=== PATIENT | female | born 1970 | race Caucasian/White ===

== ENCOUNTER 2019-07-18 08:00 | Inpatient (IN) | payer OTHER ==
[~2019-07-18] VITALS: Ht 157.5 cm; Wt 77.1 kg
[2019-07-26] MEDS ORDERED: IBUPROFEN800 MG PO (07:14)
[2019-07-26] MEDS ORDERED: NEURONTIN600 MG PO (07:14)
== END 2019-07-26 08:35 | disposition home or self-care (01) | DRG 743 ==
LOC: O/R 07-24 06:00 → OB/GYN 07-24 06:00 → SURH 07-24 08:00 → O/R 07-24 08:00 → SURH 07-24 08:30 → OB/GYN 07-24 11:38
PROVIDERS: ADMIT Obstetrics & Gynecology
PROC: 0UB70ZZ Excision of Bilateral Fallopian Tubes, Open Approach (ICD-10-PCS; 2019-07-24)
PROC: 0UT90ZZ Resection of Uterus, Open Approach (ICD-10-PCS; principal; 2019-07-24 08:30)
DX: N80.0 Endometriosis of uterus (principal); D25.1 Intramural leiomyoma of uterus; D25.0 Submucous leiomyoma of uterus; D25.2 Subserosal leiomyoma of uterus

== ENCOUNTER 2019-08-10 14:35 | Inpatient (IN) | payer OTHER ==
[~2019-08-10] VITALS: Ht 157.5 cm; Wt 74.4 kg
[~2019-08-10 14:35] MED LIST: IBUPROFEN800 MG PO; NEURONTIN600 MG PO
== END 2019-08-18 17:21 | disposition home or self-care (01) | DRG 920 ==
LOC: OB/GYN 14:35
PROVIDERS: ADMIT Obstetrics & Gynecology
PROC: 30233N1 Transfusion of Nonautologous Red Blood Cells into Peripheral Vein, Percutaneous Approach (ICD-10-PCS; principal; 2019-08-10)
PROC: BW21Y0Z Computerized Tomography (CT Scan) of Abdomen and Pelvis using Other Contrast, Unenhanced and Enhanced (ICD-10-PCS; 2019-08-10)
PROC: BU4CZZZ Ultrasonography of Uterus and Ovaries (ICD-10-PCS; 2019-08-10)
PROC: 0W9F30Z Drainage of Abdominal Wall with Drainage Device, Percutaneous Approach (ICD-10-PCS; 2019-08-15)
DX: N99.841 Postprocedural hematoma of a genitourinary system organ or structure following other procedure (principal); K68.11 Postprocedural retroperitoneal abscess; D62 Acute posthemorrhagic anemia; B95.7 Other staphylococcus as the cause of diseases classified elsewhere; B95.1 Streptococcus, group B, as the cause of diseases classified elsewhere

== ENCOUNTER → 2021-05-01 09:19 | Outpatient (CLI) | payer OTHER | END | disposition home or self-care (01) | LOC: NUCLEAR 09:00 | PROVIDERS: ATTEND Obstetrics & Gynecology | DX: I73.9 Peripheral vascular disease, unspecified (principal) ==

== ENCOUNTER 2021-05-06 09:47 | Outpatient (CLI) | payer OTHER | END 2021-05-06 09:53 | disposition home or self-care (01) | LOC: NUCLEAR 09:47 | PROVIDERS: ATTEND Obstetrics & Gynecology | DX: I87.2 Venous insufficiency (chronic) (peripheral) (principal); I73.9 Peripheral vascular disease, unspecified; I83.93 Asymptomatic varicose veins of bilateral lower extremities ==

== ENCOUNTER 2021-09-26 07:28 | Outpatient (CLI) | payer OTHER | END 2021-09-26 07:36 | disposition home or self-care (01) | LOC: NUCLEAR 07:28 | PROVIDERS: ATTEND Internal Medicine Cardiovascular Disease | DX: I10 Essential (primary) hypertension (principal) ==

== ENCOUNTER 2022-02-11 10:05 | Outpatient (CLI) | payer OTHER | END 2022-02-11 10:11 | disposition home or self-care (01) | LOC: SONOGRAMA 10:05 | PROVIDERS: ATTEND Obstetrics & Gynecology | DX: R10.2 Pelvic and perineal pain (principal) ==

== ENCOUNTER → 2022-02-13 08:54 | Outpatient (CLI) | payer OTHER | END | disposition home or self-care (01) | LOC: LAB 08:54 | PROVIDERS: ATTEND Obstetrics & Gynecology | DX: E03.9 Hypothyroidism, unspecified (principal); I10 Essential (primary) hypertension; Z00.00 Encounter for general adult medical examination without abnormal findings; E78.9 Disorder of lipoprotein metabolism, unspecified; N39.0 Urinary tract infection, site not specified; Z11.4 Encounter for screening for human immunodeficiency virus [HIV]; Z12.11 Encounter for screening for malignant neoplasm of colon; E55.9 Vitamin D deficiency, unspecified; Z21 Asymptomatic human immunodeficiency virus [HIV] infection status; R79.9 Abnormal finding of blood chemistry, unspecified; R79.89 Other specified abnormal findings of blood chemistry ==

== ENCOUNTER 2022-02-19 08:52 | Outpatient (CLI) | payer OTHER | END 2022-02-19 08:57 | disposition home or self-care (01) | LOC: LAB 08:52 | PROVIDERS: ATTEND Obstetrics & Gynecology | DX: I10 Essential (primary) hypertension (principal); E03.9 Hypothyroidism, unspecified; E78.00 Pure hypercholesterolemia, unspecified; N39.0 Urinary tract infection, site not specified; E55.9 Vitamin D deficiency, unspecified; R79.9 Abnormal finding of blood chemistry, unspecified; R79.89 Other specified abnormal findings of blood chemistry; Z00.00 Encounter for general adult medical examination without abnormal findings; Z11.4 Encounter for screening for human immunodeficiency virus [HIV]; Z12.11 Encounter for screening for malignant neoplasm of colon ==

== ENCOUNTER 2022-03-11 09:36 | Outpatient (CLI) | payer OTHER | END 2022-03-11 09:38 | disposition home or self-care (01) | LOC: MAMO-SONO 09:36 | PROVIDERS: ATTEND Obstetrics & Gynecology | DX: N63 Unspecified lump in breast (principal); N64.59 Other signs and symptoms in breast; N64.9 Disorder of breast, unspecified ==

== ENCOUNTER 2022-11-07 03:49 | Emergency (ER) | payer OTHER ==
[~2022-11-07] VITALS: Ht 157.5 cm; Wt 79.4 kg
== END 2022-11-07 11:01 ==
LOC: ER 03:49
DX: R07.89 Other chest pain (principal); Z88.0 Allergy status to penicillin; Z91.013 Allergy to seafood

== ENCOUNTER 2022-11-16 09:22 | Outpatient (CLI) | payer OTHER | END 2022-11-16 09:25 | disposition home or self-care (01) | LOC: NUCLEAR 09:22 | PROVIDERS: ATTEND Internal Medicine Cardiovascular Disease | DX: R00.2 Palpitations (principal); E78.2 Mixed hyperlipidemia ==

== ENCOUNTER 2022-11-27 11:45 | Outpatient (CLI) | payer OTHER | END 2022-11-27 12:00 | disposition home or self-care (01) | LOC: MRI 11:45 | PROVIDERS: ATTEND Neuromusculoskeletal Medicine & OMM | DX: M50.20 Other cervical disc displacement, unspecified cervical region (principal); M50.30 Other cervical disc degeneration, unspecified cervical region | CPT/HCPCS: 72141; 72148 ==

== ENCOUNTER → 2023-02-12 09:11 | Outpatient (CLI) | payer OTHER | END | disposition home or self-care (01) | LOC: LAB 09:11 | PROVIDERS: ATTEND Neuromusculoskeletal Medicine & OMM | DX: M62.9 Disorder of muscle, unspecified (principal); G62.9 Polyneuropathy, unspecified; R20.2 Paresthesia of skin; E03.9 Hypothyroidism, unspecified; E11.9 Type 2 diabetes mellitus without complications ==

== ENCOUNTER 2023-03-16 09:00 | Outpatient (CLI) | payer OTHER | END 2023-03-16 09:08 | disposition home or self-care (01) | LOC: MAMO-SONO 09:00 | PROVIDERS: ATTEND Obstetrics & Gynecology | DX: N63.0 Unspecified lump in unspecified breast (principal); N64.59 Other signs and symptoms in breast; N64.9 Disorder of breast, unspecified; Z12.31 Encounter for screening mammogram for malignant neoplasm of breast ==

== ENCOUNTER 2023-03-16 10:29 | Outpatient (CLI) | payer OTHER ==
[2023-03-16 11:40] LABS: HEMATOCRIT 39.4 % (36.0-45.00); MEAN CORPUSCULAR HEMOGLOBIN 27.7 pg (27.00-32.0); MEAN CORPUSCULAR HGB CONC 32.9 g/dl (32.0-36.0); PLATELET COUNT 190 K/uL (150-450); RED CELL DISTRIBUTION WIDTH 13.9 % (11.5-14.5)
[2023-03-16 11:46] LABS: URINE APPEARANCE Cloudy; URINE BILIRRUBIN Negative (NEGATIVE); URINE BLOOD Negative; URINE COLOR Yellow; URINE GLUCOSE Negative (NEGATIVE); URINE LEUKOCYTE Negative; URINE NITRATE Negative; URINE PROTEIN Negative (NEGATIVE); URINE UROBILINOGEN 0.2 E.U./dl
[2023-03-16 11:53] LABS: URINE BACTERIA 2691.1 uL (0.0-1933); URINE EPITHELIAL CELLS 47.6 uL (0.0-38.8); URINE RBC 32.1 uL (0.0-20.8); URINE WBC 6.1 uL (0.0-23.2)
[2023-03-16 12:13] LABS: ALBUMIN 4.1 gm/dL (3.4-5.0); BILIRUBIN TOTAL 0.52 mg/dL (0.3-1.2); CALCIUM 9.3 mg/dL (8.5-10.1); CHOL HDL RATIO 2.6 (0-5.0); CREATININE SERUM 0.55 mg/dL (0.55-1.02); GFR 116.53; GLOBULINA 3.6 G/DL (2.4-3.5); POTASSIUM 4.05 mEq/L (3.5-5.1); T4 FREE 1.13 NG/ML (0.76-1.46); TOTAL PROTEIN 7.7 gm/dL (6.4-8.2); TSH 0.779 uIU/mL (0.358-3.74)
== END 2023-03-16 13:27 | disposition home or self-care (01) ==
LOC: LAB 10:29
PROVIDERS: ATTEND Obstetrics & Gynecology
DX: Z00.00 Encounter for general adult medical examination without abnormal findings (principal); N91.0 Primary amenorrhea; E03.9 Hypothyroidism, unspecified; E78.00 Pure hypercholesterolemia, unspecified; N39.0 Urinary tract infection, site not specified; Z11.4 Encounter for screening for human immunodeficiency virus [HIV]; Z12.11 Encounter for screening for malignant neoplasm of colon; E55.9 Vitamin D deficiency, unspecified; Z21 Asymptomatic human immunodeficiency virus [HIV] infection status; R79.9 Abnormal finding of blood chemistry, unspecified; R79.89 Other specified abnormal findings of blood chemistry; Z88.0 Allergy status to penicillin; Z88.1 Allergy status to other antibiotic agents

== ENCOUNTER 2024-03-29 09:34 | Outpatient (CLI) | payer OTHER ==
[~2024-03-29 09:34] MED LIST changes: +LYRICA50 MG
== END 2024-03-29 09:37 | disposition home or self-care (01) ==
LOC: MAMO-SONO 09:34
PROVIDERS: ATTEND Obstetrics & Gynecology
DX: N94.0 Mittelschmerz (principal); R10.2 Pelvic and perineal pain; N94.89 Other specified conditions associated with female genital organs and menstrual cycle; N63 Unspecified lump in breast; N64.59 Other signs and symptoms in breast; N64.9 Disorder of breast, unspecified